=== PATIENT | female | born 1980 | race Caucasian/White ===

== ENCOUNTER 2018-03-14 10:14 | Emergency (ER) | payer BC ==
[~2018-03-14] VITALS: Ht 167.6 cm; Wt 100.0 kg
[~2018-03-14 10:14] MED LIST: ALBUS PO; AMOX875 PO; HYDR-3533 PO; LISI-360 PO; SYMB160A INH; [UNRECOGNIZED DRUG - CODE] MT
[2018-03-14 10:25] VITALS: BP 136/90; PULSE 86; RESP 16; TEMP 97.6; O2SAT 96
[2018-03-14] MEDS ORDERED: METH250T PO (10:41)
[2018-03-14] MEDS ORDERED: DIPH25CA PO (10:45)
--- NOTE | 2018-03-14 11:27 | PD ---
HPI Chief Complaint: Related Problem Time Seen by Provider: 11:01 Travel History International Travel<30 days: No Contact w/Intl Traveler<30days: No Traveled to known affect area: No History of Present Illness HPI 37-year-old female G2, P1, presents emergency department for evaluation of vaginal bleeding and pelvic pressure. Patient states she is approximately 10 weeks gestation. She has followed by Dr. Joy. IUP has been confirmed by ultrasound in their office. Patient tells me 3 days ago she started having light vaginal bleeding that has progressed to a heavy period bleeding as of today. She has pelvic pressure. She denies any specific pain. Denies any urinary symptoms. No fever or chills. She denies any trauma. She is in a monogamous relationship. She denies any other abnormal vaginal discharge. Patient tells me that she is Rh+. This is confirmed in our records. Patient has no other symptoms to report at this time. PFSH Past Medical History Asthma: Yes (with nsaids) Cancer: No Cardiovascular Problems: No Diabetes: No Endocrine: No Genitourinary: No Hepatitis: No Hiatal Hernia: No Hypertension: Yes Immune Disorder: No Musculoskeletal: No Neurologic: No Psychiatric: Yes (DEPRESSION ) Reproductive: No Respiratory: Yes (ASTHMA ) Thyroid Disease: No Influenza Vaccination: No ?: LMP: 01/02/18 Para: 1 Past Surgical History Other Surgery: Yes (nasal septoplasty) Social History Alcohol Use: No Tobacco Use: No Substance Use: No Allergies-Medications (Allergen,Severity, Reaction): Coded Allergies: Sulfa (Sulfonamide Antibiotics) (Unverified Allergy, Severe, Rash, 03/14/18 ) diclofenac (Unverified Allergy, Severe, SOB HISTAMINE REACTION, 03/14/18) etodolac (Unverified Allergy, Severe, SOB HISTAMINE REACTION, 03/14/18) flurbiprofen (Unverified Allergy, Severe, SOB HISTAMINE REACTION, 03/14/18 ) ibuprofen (Unverified Allergy, Severe, SOB HISTAMINE REACTION, 03/14/18) indomethacin (Unverified Allergy, Severe, SOB HISTAMINE REACTION, 03/14/18 ) ketoprofen (Unverified Allergy, Severe, SOB HISTAMINE REACTION, 03/14/18) ketorolac (Unverified Allergy, Severe, SOB HISTAMINE REACTION, 03/14/18) naproxen (Unverified Allergy, Severe, SOB HISTAMINE REACTION, 03/14/18) oxaprozin (Unverified Allergy, Severe, SOB HISTAMINE REACTION, 03/14/18) Reported Meds & Prescriptions Reported Meds & Active Scripts Active Reported Diphenhydramine (Diphenhydramine HCl) 25 Mg Cap 25 Mg PO Q12H Methyldopa 250 Mg Tab Unknown Dose PO BID Review of Systems Except as stated in HPI: all other systems reviewed are Neg Physical Exam Narrative GENERAL: Well-nourished female patient, no acute distress SKIN: Focused skin assessment warm/dry. HEAD: Atraumatic. Normocephalic. EYES: Pupils equal and round. No scleral icterus. No injection or drainage. ENT: No nasal bleeding or discharge. Mucous membranes pink and moist. NECK: Trachea midline. No JVD. CARDIOVASCULAR: Regular rate and rhythm. No murmur appreciated. RESPIRATORY: No accessory muscle use. Clear to auscultation. Breath sounds equal bilaterally. GASTROINTESTINAL: Abdomen soft, nondistended. Mild suprapubic tenderness to deep palpation. No guarding. No rebound tenderness. Hepatic and splenic margins not palpable. GENITOURINARY: Normal external genitalia without lesions or erythema. Vaginal vault with moderate amount of brown red blood. Cervical os was open a fingertip. No cervical motion tenderness. Uterus nontender and nonenlarged. Bilateral adnexa nontender without masses. MUSCULOSKELETAL: No obvious deformities. No clubbing. No cyanosis. No edema. NEUROLOGICAL: Awake and alert. No obvious cranial nerve deficits. Motor grossly within normal limits. Normal speech. PSYCHIATRIC: Appropriate mood and affect; insight and judgment normal. Data Data Last Documented VS Vital Signs Date Time Temp Pulse Resp B/P (MAP) Pulse Ox O2 Delivery O2 Flow Rate FiO2 03/14/18 10:25 97.6 86 16 136/90 (105) 96 Orders Orders Beta Hcg (Quant/Titer) (03/14/18 11:09) Complete Blood Count With Diff (03/14/18 11:09) Basic Metabolic Panel (Bmp) (03/14/18 11:09) Gc And Chlamydia Pcr (03/14/18 11:09) Type And Screen (03/14/18 11:09) Wet Prep Profile (03/14/18 11:09) Urinalysis - C+S If Indicated (03/14/18 11:09) Iv Access Insert/Monitor (03/14/18 11:09) Ecg Monitoring (03/14/18 11:09) Us Pelvis (Ques Pr/Ect)W Trans (03/14/18 ) Ed Discharge Order (03/14/18 14:02) Labs Laboratory Tests Test 03/14/18 11:15 03/14/18 11:20 03/14/18 11:40 White Blood Count 7.0 TH/MM3 Red Blood Count 4.27 MIL/MM3 Hemoglobin 13.5 GM/DL Hematocrit 39.5 % Mean Corpuscular Volume 92.6 FL Mean Corpuscular Hemoglobin 31.6 PG Mean Corpuscular Hemoglobin Concent 34.2 % Red Cell Distribution Width 13.0 % Platelet Count 237 TH/MM3 Mean Platelet Volume 9.4 FL Neutrophils (%) (Auto) 68.0 % Lymphocytes (%) (Auto) 21.4 % Monocytes (%) (Auto) 4.9 % Eosinophils (%) (Auto) 5.2 % Basophils (%) (Auto) 0.5 % Neutrophils # (Auto) 4.7 TH/MM3 Lymphocytes # (Auto) 1.5 TH/MM3 Monocytes # (Auto) 0.3 TH/MM3 Eosinophils # (Auto) 0.4 TH/MM3 Basophils # (Auto) 0.0 TH/MM3 CBC Comment DIFF FINAL Differential Comment Blood Urea Nitrogen 7 MG/DL Creatinine 0.70 MG/DL Random Glucose 86 MG/DL Calcium Level 8.4 MG/DL Sodium Level 139 MEQ/L Potassium Level 4.3 MEQ/L Chloride Level 106 MEQ/L Carbon Dioxide Level 24.2 MEQ/L Anion Gap 9 MEQ/L Estimat Glomerular Filtration Rate 94 ML/MIN Human Chorionic Gonadotropin, Quant 5512 MIU/ML Urine Color YELLOW Urine Turbidity CLEAR Urine pH 7.0 Urine Specific Cameron 1.022 Urine Protein TRACE mg/dL Urine Glucose (UA) NEG mg/dL Urine Ketones NEG mg/dL Urine Occult Blood MOD Urine Nitrite NEG Urine Bilirubin NEG Urine Urobilinogen 2.0 MG/DL Urine Leukocyte Esterase SMALL Urine RBC 1 /hpf Urine WBC 1 /hpf Urine Squamous Epithelial Cells 2 /hpf Urine Mucus FEW /lpf Microscopic Urinalysis Comment CULT NOT INDICATED Clue Cells (Wet Prep) NONE SEEN Vaginal Trichomonas (Wet Prep) NONE SEEN Vaginal Yeast (Wet Prep) NONE SEEN MDM Medical Decision Making Medical Screen Exam Complete: Yes Emergency Medical Condition: Yes Medical Record Reviewed: Yes Differential Diagnosis Vaginal bleeding during versus menses versus threatened versus postcoital bleeding versus STD Narrative Course 37-year-old female presents emergency department for evaluation of vaginal bleeding 3 days with previously confirmed IUP by Dr. Joy. Pelvic reveals moderate amount of red brown blood within the vaginal vault. Cervix is dilated to 1 cm. No CMT. Laboratory Tests Test 03/14/18 11:15 03/14/18 11:20 03/14/18 11:40 White Blood Count 7.0 TH/MM3 Red Blood Count 4.27 MIL/MM3 Hemoglobin 13.5 GM/DL Hematocrit 39.5 % Mean Corpuscular Volume 92.6 FL Mean Corpuscular Hemoglobin 31.6 PG Mean Corpuscular Hemoglobin Concent 34.2 % Red Cell Distribution Width 13.0 % Platelet Count 237 TH/MM3 Mean Platelet Volume 9.4 FL Neutrophils (%) (Auto) 68.0 % Lymphocytes (%) (Auto) 21.4 % Monocytes (%) (Auto) 4.9 % Eosinophils (%) (Auto) 5.2 % Basophils (%) (Auto) 0.5 % Neutrophils # (Auto) 4.7 TH/MM3 Lymphocytes # (Auto) 1.5 TH/MM3 Monocytes # (Auto) 0.3 TH/MM3 Eosinophils # (Auto) 0.4 TH/MM3 Basophils # (Auto) 0.0 TH/MM3 CBC Comment DIFF FINAL Differential Comment Blood Urea Nitrogen 7 MG/DL Creatinine 0.70 MG/DL Random Glucose 86 MG/DL Calcium Level 8.4 MG/DL Sodium Level 139 MEQ/L Potassium Level 4.3 MEQ/L Chloride Level 106 MEQ/L Carbon Dioxide Level 24.2 MEQ/L Anion Gap 9 MEQ/L Estimat Glomerular Filtration Rate 94 ML/MIN Human Chorionic Gonadotropin, Quant 5512 MIU/ML Urine Color YELLOW Urine Turbidity CLEAR Urine pH 7.0 Urine Specific Cameron 1.022 Urine Protein TRACE mg/dL Urine Glucose (UA) NEG mg/dL Urine Ketones NEG mg/dL Urine Occult Blood MOD Urine Nitrite NEG Urine Bilirubin NEG Urine Urobilinogen 2.0 MG/DL Urine Leukocyte Esterase SMALL Urine RBC 1 /hpf Urine WBC 1 /hpf Urine Squamous Epithelial Cells 2 /hpf Urine Mucus FEW /lpf Microscopic Urinalysis Comment CULT NOT INDICATED Clue Cells (Wet Prep) NONE SEEN Vaginal Trichomonas (Wet Prep) NONE SEEN Vaginal Yeast (Wet Prep) NONE SEEN Last Impressions Pelvis Ultrasound 03/14/18 0000 Signed Impressions: CONCLUSION: 1. Irregular gestational sac consistent with nonviable . 2. Echogenic focus distal sac could be a pole but no heart tones i dentified. I discussed the patient with my attending physician who is also reviewed the findings. Patient will be discharged home to follow-up with Dr. Joy. She is encouraged to return immediately with acute worsening of symptoms. 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
[2018-03-14 11:44] LABS: AUTOMATED NEUTROPHIL # 4.7 TH/MM3 (1.8-7.7); BASOPHIL % 0.5 % (0.0-2.0); EOSINOPHIL # 0.4 TH/MM3 (0-0.4); EOSINOPHIL % 5.2 % (0.0-4.0); HEMATOCRIT 39.5 % (35.0-46.0); HEMOGLOBIN 13.5 GM/DL (11.6-15.3); LYMPH % 21.4 % (9.0-44.0); LYMPHOCYTE # 1.5 TH/MM3 (1.0-4.8); MEAN CELL VOLUME 92.6 FL (80.0-100.0); MEAN CORPUSCULAR HEMOGLOBIN 31.6 PG (27.0-34.0); MEAN CORPUSCULAR HGB CONC 34.2 % (32.0-36.0); MEAN PLATELET VOLUME 9.4 FL (7.0-11.0); MONO % 4.9 % (0.0-8.0); MONOCYTE # 0.3 TH/MM3 (0-0.9); PLATELET COUNT 237 TH/MM3 (150-450); RED BLOOD COUNT 4.27 MIL/MM3 (4.00-5.30)
[2018-03-14 11:50] LABS: BILIRUBIN, URINE NEG (NEG); BLOOD, URINE MOD (NEG); GLUCOSE,URINE NEG (NEG); KETONE, URINE NEG (NEG); MUCUS URINE FEW /lpf (OCC); NITRITE,URINE NEG (NEG); SQUAMOUS EPITHELIAL CELL URINE 2 /hpf (0-5); URINE COLOR YELLOW (YELLW/STRAW); URINE LEUKOCYTE ESTERASE SMALL (NEG)
[2018-03-14 12:23] LABS: BICARBONATE 24.2 MEQ/L (21.0-32.0); CALCIUM 8.4 MG/DL (8.5-10.1); CREATININE 0.7 MG/DL (0.50-1.00)
--- NOTE | 2018-03-14 13:59 | RADRPT ---
EXAM DATE: 03/14/2018 1:37 PM EDT AGE/SEX: 37 years / Female INDICATIONS: Vaginal bleeding with . CLINICAL DATA: This is the patient's initial encounter. Patient reports that signs and symptoms have been present for 4 - 6 days and indicates a pain score of 5/10. MEDICAL/SURGICAL HISTORY: . . . Nasal septoplasty. COMPARISON: No prior [facility] exams available for comparison. MEASUREMENTS: Uterus:__11.3 x 7.3 x 5.9 cm, Endometrial Stripe:__9 mm Right Ovary:__ 2.3 x 1.6 x 1.2 cm Left Ovary:__ 3.4 x 2.0 x 3.1 FINDINGS: Uterus: Irregular elongated gestational sac with yolk sac. Echogenic focus in the distal sac could b e pole. This measures 13 x 7 x 5 mm No heart tones. Right Ovary: No mass or concerning cystic lesion Left Ovary: No mass or concerning cystic lesion Other: No free fluid. CONCLUSION: 1. Irregular gestational sac consistent with nonviable . 2. Echogenic focus distal sac could be a pole but no heart tones identified. Electronically signed by: Rui Argueta MD 03/14/2018 1:58 PM EDT
[2018-03-14] MEDS ORDERED: TRAM50 PO (14:06)
== END 2018-03-14 14:20 | disposition home or self-care (01) ==
LOC: NEPE 10:14
DX: O03.4 Incomplete spontaneous abortion without complication (principal); O99.341 Other mental disorders complicating pregnancy, first trimester; F32.9 Major depressive disorder, single episode, unspecified; O99.511 Diseases of the respiratory system complicating pregnancy, first trimester; J45.909 Unspecified asthma, uncomplicated; O16.1 Unspecified maternal hypertension, first trimester; Z3A.10 10 weeks gestation of pregnancy
CPT/HCPCS: 76700; 76817; 80048; 81001; 84702; 85025; 86850; 86900; 86901; 87210; 87491; 87591

== ENCOUNTER 2018-03-16 17:40 | Day surgery (SDC) | payer BC ==
[~2018-03-16] VITALS: Ht 167.6 cm; Wt 86.4 kg
[~2018-03-16 17:40] MED LIST changes: -ALBUS PO; -AMOX875 PO; +DEXAMETHASONE SOD PHOS 4 MG/ML VIAL IV ONE; +DIPH25CA PO; -HYDR-3533 PO; +LIDOCAINE HCL 1% PF 5 ML SYRINGE OTHER ONE; -LISI-360 PO; +METH250T PO; +ONDANSETRON HCL 4 MG/2 ML VIAL IV ONE; +PROPOFOL 200 MG/20 ML AMP IV ONE; +SODIUM CHLORIDE 0.9% 10 ML VIAL IV ONE; +SUCCINYLCHOLINE CHLORIDE 100 MG/5 ML SYRINGE IV PUSH ONE; -SYMB160A INH; +TRAM50 PO; -[UNRECOGNIZED DRUG - CODE] MT
[2018-03-16 17:44] VITALS: BP 138/90; PULSE 113; RESP 20; O2SAT 98
[2018-03-16] MEDS ORDERED: SODIUM CHLORIDE 0.9% FLUSH 10 ML FLUSH IV FLUSH PRN (17:45)
[2018-03-16] MEDS ORDERED: BUTORPHANOL TARTRATE INJ 1 MG/ML VIAL IV PUSH ONE (17:45)
[2018-03-16] MEDS: ONDANSETRON ODT 4 MG TAB PO ONE ×2 (18:00→21:04)
[2018-03-16 18:05] VITALS: BP 128/89; PULSE 93; RESP 18; O2SAT 99
[2018-03-16] MEDS ORDERED: ULTR37.55 PO (18:06)
[2018-03-16] MEDS ORDERED: ZOFR4TAB3 SL (18:06)
--- NOTE | 2018-03-16 18:06 | PD ---
HPI Chief Complaint: Related Problem Time Seen by Provider: 17:43 Travel History International Travel<30 days: No Contact w/Intl Traveler<30days: No Traveled to known affect area: No History of Present Illness HPI Patient was seen on March 14 and diagnosed with a threatened miscarriage based on ultrasound and quantitative hCG. The patient started to have much heavier bleeding onset today approximately 2 hours ago, she became concerned because it did not seem to be slowing down or stopping. Patient is aware that she was having an inevitable miscarriage, based on the ultrasound appears to have stopped growing at about 7 weeks or so and there was no evidence of any activity when the ultrasound was performed on 14 March. Patient states that her blood type is A+ Patient states that she develops nausea and vomiting to NSAIDs as well as to codeine Past medical history significant for hypertension, asthma, depression PFSH Past Medical History Asthma: Yes (with nsaids) Cancer: No Cardiovascular Problems: No Diabetes: No Endocrine: No Genitourinary: No Hepatitis: No Hiatal Hernia: No Hypertension: Yes Immune Disorder: No Musculoskeletal: No Neurologic: No Psychiatric: Yes (DEPRESSION ) Reproductive: No Respiratory: Yes (ASTHMA ) Thyroid Disease: No ?: Para: 1 Past Surgical History Other Surgery: Yes (nasal septoplasty) Social History Alcohol Use: No Tobacco Use: No Substance Use: No Allergies-Medications (Allergen,Severity, Reaction): Coded Allergies: NSAIDS (Non-Steroidal Anti-Inflamma (Verified Allergy, Severe, Anaphylaxis , 03/16/18) Sulfa (Sulfonamide Antibiotics) (Verified Allergy, Severe, Rash, 03/16/18) diclofenac (Verified Allergy, Severe, SOB HISTAMINE REACTION, 03/16/18) etodolac (Verified Allergy, Severe, SOB HISTAMINE REACTION, 03/16/18) flurbiprofen (Verified Allergy, Severe, SOB HISTAMINE REACTION, 03/16/18) ibuprofen (Verified Allergy, Severe, SOB HISTAMINE REACTION, 03/16/18) indomethacin (Verified Allergy, Severe, SOB HISTAMINE REACTION, 03/16/18) ketoprofen (Verified Allergy, Severe, SOB HISTAMINE REACTION, 03/16/18) ketorolac (Verified Allergy, Severe, SOB HISTAMINE REACTION, 03/16/18) naproxen (Verified Allergy, Severe, SOB HISTAMINE REACTION, 03/16/18) oxaprozin (Verified Allergy, Severe, SOB HISTAMINE REACTION, 03/16/18) Reported Meds & Prescriptions Reported Meds & Active Scripts Active Reported Methyldopa 250 Mg Tab 250 Mg PO TID Review of Systems Except as stated in HPI: all other systems reviewed are Neg Physical Exam Narrative GENERAL: SKIN: Warm and dry. HEAD: Atraumatic. Normocephalic. EYES: Pupils equal and round. No scleral icterus. No injection or drainage. ENT: No nasal bleeding or discharge. Mucous membranes pink and moist. NECK: Trachea midline. No JVD. CARDIOVASCULAR: Regular rate and rhythm. RESPIRATORY: No accessory muscle use. Clear to auscultation. Breath sounds equal bilaterally. GASTROINTESTINAL: Abdomen soft, non-tender, nondistended. MUSCULOSKELETAL: Extremities without clubbing, cyanosis, or edema. No obvious deformities. NEUROLOGICAL: Awake and alert. No obvious cranial nerve deficits. Motor grossly within normal limits. Five out of 5 muscle strength in the arms and legs. Normal speech. PSYCHIATRIC: Appropriate mood and affect; insight and judgment normal. Data Data Last Documented VS Vital Signs Date Time Temp Pulse Resp B/P (MAP) Pulse Ox O2 Delivery O2 Flow Rate FiO2 03/16/18 18:36 93 16 133/85 (101) 98 Room Air Orders Orders Complete Blood Count With Diff (03/16/18 17:45) Basic Metabolic Panel (Bmp) (03/16/18 17:45) Beta Hcg (Quant/Titer) (03/16/18 17:45) Iv Access Insert/Monitor (03/16/18 17:45) Ecg Monitoring (03/16/18 17:45) Oximetry (03/16/18 17:45) NPO (03/16/18 17:45) Sodium Chloride 0.9% Flush (Ns Flush) (03/16/18 17:45) Butorphanol Inj (Stadol Inj) (03/16/18 17:45) Ondansetron Odt (Zofran Odt) (03/16/18 18:00) Labs Laboratory Tests Test 03/16/18 18:00 White Blood Count 8.6 TH/MM3 Red Blood Count 3.81 MIL/MM3 Hemoglobin 12.4 GM/DL Hematocrit 34.8 % Mean Corpuscular Volume 91.4 FL Mean Corpuscular Hemoglobin 32.6 PG Mean Corpuscular Hemoglobin Concent 35.7 % Red Cell Distribution Width 12.9 % Platelet Count 232 TH/MM3 Mean Platelet Volume 9.1 FL Neutrophils (%) (Auto) 72.4 % Lymphocytes (%) (Auto) 18.4 % Monocytes (%) (Auto) 5.3 % Eosinophils (%) (Auto) 3.4 % Basophils (%) (Auto) 0.5 % Neutrophils # (Auto) 6.2 TH/MM3 Lymphocytes # (Auto) 1.6 TH/MM3 Monocytes # (Auto) 0.5 TH/MM3 Eosinophils # (Auto) 0.3 TH/MM3 Basophils # (Auto) 0.0 TH/MM3 CBC Comment DIFF FINAL Differential Comment Blood Urea Nitrogen 10 MG/DL Creatinine 0.83 MG/DL Random Glucose 99 MG/DL Calcium Level 8.8 MG/DL Sodium Level 141 MEQ/L Potassium Level 3.7 MEQ/L Chloride Level 108 MEQ/L Carbon Dioxide Level 23.1 MEQ/L Anion Gap 10 MEQ/L Estimat Glomerular Filtration Rate 77 ML/MIN MDM Medical Decision Making Medical Screen Exam Complete: Yes Emergency Medical Condition: Yes Medical Record Reviewed: Yes Differential Diagnosis Anemia versus dehydration versus miscarriage inevitable Narrative Course Patient seen and evaluated on March 14, 2018 at which time GC and Chlamydia were negative, clue cells/trichomonas/yeast negative. Electrolytes were all within normal limits with a quantitative hCG of 5512 CBC shows no leukocytosis, H&H of 13/39, normal normal platelet count and no left shift Ultrasound performed on March 14 also showed an irregular elongated gestational sac with yolk sac but no evidence of any heart tones On March 16 patient's leukocytes are negative, normal platelet count, no left shift, normal H&H of 12/35 Electrolytes are all within normal limits, normal kidney function Repeat quantitative hCG is lower than prior ONE consistent with miscarriage Diagnosis Primary Impression: Miscarriage Patient Instructions: General Instructions, Miscarriage (ED) Disposition: 01 DISCHARGE HOME Condition: Stable Scout Garcia MD March 16, 2018 18:06
[2018-03-16 18:26] LABS: AUTOMATED NEUTROPHIL # 6.2 TH/MM3 (1.8-7.7); BASOPHIL % 0.5 % (0.0-2.0); EOSINOPHIL # 0.3 TH/MM3 (0-0.4); EOSINOPHIL % 3.4 % (0.0-4.0); HEMATOCRIT 34.8 % (35.0-46.0); HEMOGLOBIN 12.4 GM/DL (11.6-15.3); LYMPH % 18.4 % (9.0-44.0); LYMPHOCYTE # 1.6 TH/MM3 (1.0-4.8); MEAN CELL VOLUME 91.4 FL (80.0-100.0); MEAN CORPUSCULAR HEMOGLOBIN 32.6 PG (27.0-34.0); MEAN CORPUSCULAR HGB CONC 35.7 % (32.0-36.0); MEAN PLATELET VOLUME 9.1 FL (7.0-11.0); MONO % 5.3 % (0.0-8.0); MONOCYTE # 0.5 TH/MM3 (0-0.9); NEUT % 72.4 % (16.0-70.0); PLATELET COUNT 232 TH/MM3 (150-450); RED BLOOD COUNT 3.81 MIL/MM3 (4.00-5.30); RED CELL DISTRIBUTION WIDTH 12.9 % (11.6-17.2); WHITE BLOOD COUNT 8.6 TH/MM3 (4.0-11.0)
[2018-03-16 18:36] VITALS: BP 133/85; PULSE 93; RESP 16; O2SAT 98
[2018-03-16] MEDS ORDERED: METH250T PO (18:42)
[2018-03-16 18:53] LABS: BICARBONATE 23.1 MEQ/L (21.0-32.0); CALCIUM 8.8 MG/DL (8.5-10.1); CREATININE 0.83 MG/DL (0.50-1.00)
[2018-03-16 19:30] VITALS: BP 105/56; PULSE 86; RESP 16; O2SAT 98
[2018-03-16] MEDS ORDERED: MISOPROSTOL 200 MCG TAB PO ONE (19:45)
[2018-03-16] MEDS ORDERED: MISOPROSTOL 200 MCG TAB RECTAL ONE (19:45)
--- NOTE | 2018-03-16 19:49 | PD ---
Data Data Last Documented VS Vital Signs Date Time Temp Pulse Resp B/P (MAP) Pulse Ox O2 Delivery O2 Flow Rate FiO2 03/16/18 18:36 93 16 133/85 (101) 98 Room Air Orders Orders Complete Blood Count With Diff (03/16/18 17:45) Basic Metabolic Panel (Bmp) (03/16/18 17:45) Beta Hcg (Quant/Titer) (03/16/18 17:45) Iv Access Insert/Monitor (03/16/18 17:45) Ecg Monitoring (03/16/18 17:45) Oximetry (03/16/18 17:45) NPO (03/16/18 17:45) Sodium Chloride 0.9% Flush (Ns Flush) (03/16/18 17:45) Butorphanol Inj (Stadol Inj) (03/16/18 17:45) Ondansetron Odt (Zofran Odt) (03/16/18 18:00) Us Pelvis (Ques Pr/Ect)W Trans (03/16/18 ) Misoprostol (Cytotec) (03/16/18 19:45) Misoprostol (Cytotec) (03/16/18 19:45) Cbc No Diff, Includes Plts (03/16/18 22:28) Labs Laboratory Tests Test 03/16/18 18:00 White Blood Count 8.6 TH/MM3 Red Blood Count 3.81 MIL/MM3 Hemoglobin 12.4 GM/DL Hematocrit 34.8 % Mean Corpuscular Volume 91.4 FL Mean Corpuscular Hemoglobin 32.6 PG Mean Corpuscular Hemoglobin Concent 35.7 % Red Cell Distribution Width 12.9 % Platelet Count 232 TH/MM3 Mean Platelet Volume 9.1 FL Neutrophils (%) (Auto) 72.4 % Lymphocytes (%) (Auto) 18.4 % Monocytes (%) (Auto) 5.3 % Eosinophils (%) (Auto) 3.4 % Basophils (%) (Auto) 0.5 % Neutrophils # (Auto) 6.2 TH/MM3 Lymphocytes # (Auto) 1.6 TH/MM3 Monocytes # (Auto) 0.5 TH/MM3 Eosinophils # (Auto) 0.3 TH/MM3 Basophils # (Auto) 0.0 TH/MM3 CBC Comment DIFF FINAL Differential Comment Blood Urea Nitrogen 10 MG/DL Creatinine 0.83 MG/DL Random Glucose 99 MG/DL Calcium Level 8.8 MG/DL Sodium Level 141 MEQ/L Potassium Level 3.7 MEQ/L Chloride Level 108 MEQ/L Carbon Dioxide Level 23.1 MEQ/L Anion Gap 10 MEQ/L Estimat Glomerular Filtration Rate 77 ML/MIN Human Chorionic Gonadotropin, Quant 2024 MIU/ML MDM Supervised Visit with [employer]: No Narrative Course The patient was initially evaluated by the previous provider and discharged just prior to change of shift. See his note for further details. As the patient was being discharged about 30 minutes after change of shift at around 7: 30 PM, she had a near syncopal episode and was noted to have significant vaginal bleeding. At this time I was called to the bedside by the patient's nurse. This is a 37-year-old female , approximately 10 weeks , seen in the emergency department 2 days ago and diagnosed with a nonviable , presents today for evaluation of significant vaginal bleeding started about 2 hours prior to arrival. Previous provider did basic blood work which showed an H&H of 12/34, and deemed the patient stable for discharge home. Upon discharge the patient had near syncopal episode and her blood pressure went down to 90s over 60s. A liter of fluids was hung. I evaluated the patient and at this time she is awake and alert, however feels lightheaded. According to the nurse she had 4 large episodes of bleeding during her entire emergency department stay. I discussed the case with on-call OB hospitalist Dr. Lopez who recommends 400 mg of rectal Cytotec and 400 mg of oral Cytotec as well as a pelvic ultrasound to assess for possible retained products of conception. Pelvic ultrasound: CONCLUSION: 1. Redemonstration of irregular appearing endometrial gestational sac without a definite pole or heart tones. Given apparent interval decrease in beta hCG, findings are consistent with demise. 10:00 PM: Case again discussed with OB hospitalist Dr. Lopez who will present to the emergency department to evaluate the patient. The patient was evaluated by Dr. Lopez. Plan is for the patient to be taken to the OR for D&C by Dr. Jerry Diagnosis Primary Impression: Incomplete Patient Instructions: General Instructions, Miscarriage (ED) Disposition: 01 DISCHARGE HOME Condition: Stable Pardeep Choi MD March 16, 2018 19:49
--- NOTE | 2018-03-16 21:56 | RADRPT ---
EXAM DATE: 03/16/2018 9:49 PM EDT AGE/SEX: 37 years / Female INDICATIONS: Vaginal bleeding. CLINICAL DATA: This is the patient's subsequent encounter. Patient reports that signs and symptoms h ave been present for 4 - 6 days and indicates a pain score of 2/10. MEDICAL/SURGICAL HISTORY: . . Hypertension. Asthma. Depression. . Nasal septopla sty. COMPARISON: C, US PELVIS ([facility] PREG/ECTOPIC) W/TRANSVAG, 03/14/2018. . No external comparison . MEASUREMENTS: Uterus:__11.4 x 5.8 x 7.1 Endometrial Stripe:__17 mm Right Ovary:__ 3.5 x 2.0 x 2.1 Left Ovary:__ 3.0 x 2.0 x 2.1 FINDINGS: Uterus: Redemonstration of somewhat irregular appearing endometrial gestational sac containing a yol k sac but no definite pole or heart tones. Right Ovary: No mass or concerning cystic lesion. Left Ovary: No mass or concerning cystic lesion. Other: No free fluid. CONCLUSION: 1. Redemonstration of irregular appearing endometrial gestational sac without a definite pole or heart tones. Given apparent interval decrease in beta hCG, findings are consistent with feta l demise. Electronically signed by: Mikal Saeed MD 03/16/2018 9:54 PM EDT
[2018-03-16 22:00] VITALS: BP 125/76; PULSE 89; RESP 16; O2SAT 98
--- NOTE | 2018-03-16 22:37 | HHI.HP ---
HPI Chief Complaint vaginal bleeding Date Seen: March 16, 2018 Time Seen: 22:30 Travel History International Travel<30 Days: No Contact w/Intl Traveler<30Days: No Known Affected Area: No History of Present Illness HPI 37 yo at approx 8 weeks c/o heavy vaginal bleeding that began this aftenoon. Passed multiple blood clots at home, soaking two hand towels. Bled through 3 chucks in the ED. Sees Dr Joy for care this with initial visit 3 weeks ago. Was diagnosed with missed Ab on . She called the office and elected for observation for a short time to allow spontaneous miscarriage. Experienced a vasovagal episode in ED and given fluids. Sonogram noted missed ab. Patient has been given cytotec 800mcg approx 2 hours ago. Weeks Gestation: 8 Para: 1 : 2 History Past Medical History Narrative Medical Hypertension on [place] Obstetric History Obstetric History x 1 Past Surgical History Narrative Surgical Nasal bone reconstruction Family History Family History: Negative Social History Alcohol Use: No Tobacco Use: No Substance Abuse: No Allergies-Medications (Allergen,Severity, Reaction): Coded Allergies: NSAIDS (Non-Steroidal Anti-Inflamma (Verified Allergy, Severe, Anaphylaxis , 03/16/18) Sulfa (Sulfonamide Antibiotics) (Verified Allergy, Severe, Rash, 03/16/18) diclofenac (Verified Allergy, Severe, SOB HISTAMINE REACTION, 03/16/18) etodolac (Verified Allergy, Severe, SOB HISTAMINE REACTION, 03/16/18) flurbiprofen (Verified Allergy, Severe, SOB HISTAMINE REACTION, 03/16/18) ibuprofen (Verified Allergy, Severe, SOB HISTAMINE REACTION, 03/16/18) indomethacin (Verified Allergy, Severe, SOB HISTAMINE REACTION, 03/16/18) ketoprofen (Verified Allergy, Severe, SOB HISTAMINE REACTION, 03/16/18) ketorolac (Verified Allergy, Severe, SOB HISTAMINE REACTION, 03/16/18) naproxen (Verified Allergy, Severe, SOB HISTAMINE REACTION, 03/16/18) oxaprozin (Verified Allergy, Severe, SOB HISTAMINE REACTION, 03/16/18) Home Meds Reported Medications Methyldopa (Methyldopa) 250 Mg Tab, 250 MG PO TID for Blood Pressure Management , TAB 0 Refills 03/16/18 Discontinued Reported Medications Diphenhydramine (Diphenhydramine) 25 Mg Cap, 25 MG PO Q12H, CAP 0 Refills 03/14/18 Methyldopa (Methyldopa) 250 Mg Tab, PO BID for Blood Pressure Management, TAB 0 Refills 03/14/18 Discontinued Scripts Tramadol-Acetaminophen (Ultracet) 37.5-325 mg Tab, 2 TAB PO Q6H Y for PAIN for 2 Days, #16 TAB 0 Refills Prov:Scout Garcia MD 03/16/18 Ondansetron Odt (Zofran Odt) 4 Mg Tab, 4 MG SL Q6HR Y for Nausea/Vomiting, #14 TAB 0 Refills Prov:Scout Garcia MD 03/16/18 Tramadol (Ultram) 50 Mg Tab, 50 MG PO Q8H Y for PAIN, #12 TAB 0 Refills Prov:Roro Zaidi 03/14/18 Review of Systems Except as stated in HPI: all other systems reviewed are Neg Physical Exam Vital Signs Date Time Temp Pulse Resp B/P (MAP) Pulse Ox O2 Delivery O2 Flow Rate FiO2 03/16/18 18:36 93 16 133/85 (101) 98 Room Air 03/16/18 18:05 93 18 128/89 (102) 99 Room Air 03/16/18 17:44 113 20 138/90 (106) 98 Narrative GENERAL: Well-nourished, well-developed patient. SKIN: Warm and dry. HEAD: Normocephalic and atraumatic. EYES: No scleral icterus. No injection or drainage. ENT: No nasal drainage noted. Mucous membranes pink. Airway patent. NECK: Supple, trachea midline. No JVD. CARDIOVASCULAR: Regular rate and rhythm without murmurs, gallops, or rubs. ABDOMEN/GI: Abdomen soft, non-tender, bowel sounds present, no rebound, no guarding GENITOURINARY: Speculum exam noted large clots in vagina. Cervix is open with active mild/mod bleeding. No product of conception are noted. EXTREMITIES: No cyanosis or edema. BACK: Nontender without obvious deformity. No CVA tenderness. NEUROLOGICAL: Awake and alert. Motor and sensory grossly within normal limits. Five out of 5 muscle strength in all muscle groups. Normal speech. Caprini VTE Risk Assessment Caprini VTE Risk Assessment: No/Low Risk (score <= 1) Caprini Risk Assessment Model Point Value = 1 Point Value = 2 Point Value = 3 Point Value = 5 Age 41-60 Minor surgery BMI > 25 kg/m2 Swollen legs Varicose veins or History of unexplained or recurrent spontaneous Oral contraceptives or hormone replacement Sepsis (< 1 month) Serious lung disease, including pneumonia (< 1 month) Abnormal pulmonary function Acute myocardial infarction Congestive heart failure (< 1 month) History of inflammatory bowel disease Medical patient at bed rest Age 61-74 Arthroscopic surgery Major open surgery (> 45 min) Laparoscopic surgery (> 45 min) Malignancy Confined to bed (> 72 hours) Immobilizing plaster cast Central venous access Age >= 75 History of VTE Family history of VTE Factor V Leiden Prothrombin [id number] Lupus anticoagulant Anticardiolipin antibodies Elevated serum homocysteine Heparin-induced thrombocytopenia Other congenital or acquired thrombophilia Stroke (< 1 month) Elective arthroplasty Hip, pelvis, or leg fracture Acute spinal cord injury (< 1 month) Prophylaxis Regimen Total Risk Factor Score Risk Level Prophylaxis Regimen 0-1 Low Early ambulation 2 Moderate Order ONE of the following: *Sequential Compression Device (SCD) *Heparin 5000 units SQ BID 3-4 Higher Order ONE of the following medications: *Heparin 5000 units SQ TID *Enoxaparin/Lovenox 40 mg SQ daily (WT < 150 kg, CrCl > 30 mL/min) *Enoxaparin/Lovenox 30 mg SQ daily (WT < 150 kg, CrCl > 10-29 mL/min) *Enoxaparin/Lovenox 30 mg SQ BID (WT < 150 kg, CrCl > 30 mL/min) AND/OR *Sequential Compression Device (SCD) 5 or more Highest Order ONE of the following medications: *Heparin 5000 units SQ TID (Preferred with Epidurals) *Enoxaparin/Lovenox 40 mg SQ daily (WT < 150 kg, CrCl > 30 mL/min) *Enoxaparin/Lovenox 30 mg SQ daily (WT < 150 kg, CrCl > 10-29 mL/min) *Enoxaparin/Lovenox 30 mg SQ BID (WT < 150 kg, CrCl > 30 mL/min) AND *Sequential Compression Device (SCD) Data Data Vital Signs Reviewed: Yes Orders Orders Complete Blood Count With Diff (03/16/18 17:45) Basic Metabolic Panel (Bmp) (03/16/18 17:45) Beta Hcg (Quant/Titer) (03/16/18 17:45) Iv Access Insert/Monitor (03/16/18 17:45) Ecg Monitoring (03/16/18 17:45) Oximetry (03/16/18 17:45) NPO (03/16/18 17:45) Sodium Chloride 0.9% Flush (Ns Flush) (03/16/18 17:45) Butorphanol Inj (Stadol Inj) (03/16/18 17:45) Ondansetron Odt (Zofran Odt) (03/16/18 18:00) Us Pelvis (Ques Pr/Ect)W Trans (03/16/18 ) Misoprostol (Cytotec) (03/16/18 19:45) Misoprostol (Cytotec) (03/16/18 19:45) Cbc No Diff, Includes Plts (03/16/18 22:28) Labs Last 24 hours Impressions Pelvis Ultrasound 03/16/18 0000 Signed Impressions: CONCLUSION: 1. Redemonstration of irregular appearing endometrial gestational sac without a definite pole or heart tones. Given apparent interval decrease in beta hCG, findings are consistent with demise. Laboratory Tests Test 03/16/18 18:00 White Blood Count 8.6 Red Blood Count 3.81 Hemoglobin 12.4 Hematocrit 34.8 Mean Corpuscular Volume 91.4 Mean Corpuscular Hemoglobin 32.6 Mean Corpuscular Hemoglobin Concent 35.7 Red Cell Distribution Width 12.9 Platelet Count 232 Mean Platelet Volume 9.1 Neutrophils (%) (Auto) 72.4 Lymphocytes (%) (Auto) 18.4 Monocytes (%) (Auto) 5.3 Eosinophils (%) (Auto) 3.4 Basophils (%) (Auto) 0.5 Neutrophils # (Auto) 6.2 Lymphocytes # (Auto) 1.6 Monocytes # (Auto) 0.5 Eosinophils # (Auto) 0.3 Basophils # (Auto) 0.0 CBC Comment DIFF FINAL Differential Comment Blood Urea Nitrogen 10 Creatinine 0.83 Random Glucose 99 Calcium Level 8.8 Sodium Level 141 Potassium Level 3.7 Chloride Level 108 Carbon Dioxide Level 23.1 Anion Gap 10 Estimat Glomerular Filtration Rate 77 Human Chorionic Gonadotropin, Quant 2023 Assessment/Plan Problem List: (1) Incomplete ICD Codes: O03.4 - Incomplete spontaneous without complication Status: Acute Assessment and Plan Discussed patient with Dr Jerry who is covering Dr Joy. He is coming to evaluate and perform D&C with suction. I discussed the procedure in detail including risks of the procedure bleeding, injury to the bowel, bladder, perforation of uterus, and blood transfusion. H&H has been drawn Patient has been NPO since 2pm today. Rosa Lopez MD March 16, 2018 22:37
[2018-03-16] MEDS ORDERED: OXYTOCIN 10 UNIT/ML AMP ONE (22:40)
[2018-03-16] MEDS ORDERED: ACETAMINOPHEN 1000 MG/100 ML 100 ML IV ONE (22:45)
[2018-03-16 22:55] LABS: HEMATOCRIT 30.3 % (35.0-46.0); HEMOGLOBIN 10.3 GM/DL (11.6-15.3); MEAN CELL VOLUME 91.2 FL (80.0-100.0); MEAN CORPUSCULAR HEMOGLOBIN 30.9 PG (27.0-34.0); MEAN CORPUSCULAR HGB CONC 33.9 % (32.0-36.0); MEAN PLATELET VOLUME 9.1 FL (7.0-11.0); PLATELET COUNT 252 TH/MM3 (150-450); RED BLOOD COUNT 3.32 MIL/MM3 (4.00-5.30); RED CELL DISTRIBUTION WIDTH 13.1 % (11.6-17.2); WHITE BLOOD COUNT 12.3 TH/MM3 (4.0-11.0)
--- NOTE | 2018-03-16 23:29 | PD.OP ---
Operative Report Date of Surgery: March 16, 2018 Preoperative Diagnosis: (1) Incomplete Postoperative Diagnosis: (1) Incomplete Procedure: D&C with suction Anesthesia: general munguia Surgeon: Derick Jerry Payment Processor(s): Derick Narvaez MD March 16, 2018 23:29
[2018-03-16] MEDS ORDERED: PERC5TAB12 PO (23:33)
[2018-03-16] MEDS ORDERED: DO NOT ADM ANY ANTICOAGULANT DRUGS PRN (23:33)
--- NOTE | 2018-03-16 23:34 | HHI.DCPOC ---
Discharge Care Plan Diagnosis: (1) Incomplete Report Symptoms to Your Doctor -Temperature above 100.5 degrees -Redness, of incision or excessive or foul smelling drainage -Unusual pain or calf pain -Increased vaginal bleeding -Painful or difficulty urinating -Feelings of extreme sadness or anxiety after 2 weeks Goals to Promote Your Health * To prevent worsening of your condition and complications * To maintain your health at the optimal level Directions to Meet Your Goals Take your medications as prescribed Follow your dietary instruction Follow activity as directed Ensure plenty of rest for recovery Drink fluids for hydration Keep your appointments as scheduled Take your immunizations and boosters as scheduled If your symptoms worsen call your PCP, if no PCP go to Urgent Care Center or Emergency Room Smoking is Dangerous to Your Health. Avoid second hand smoke Call the 24-hour crisis hotline for domestic abuse at Derick Jerry MD March 16, 2018 23:34
[2018-03-16] MEDS ORDERED: RESP: ALBUTEROL CONC 2.5 MG/0.5 ML NEB ONE (23:36)
[2018-03-16] MEDS ORDERED: MIDAZOLAM HCL 2 MG/2 ML VIAL ONE (23:51)
--- NOTE | 2018-03-16 23:56 | MP ---
cc: Derick Jerry MD DATE OF OPERATION: 03/16/2018 PROCEDURE PERFORMED: Dilatation and curettage with suction curette. PREOPERATIVE DIAGNOSIS: The patient has an incomplete . POSTOPERATIVE DIAGNOSIS: The patient has an incomplete , dilatation and curettage with suction curette. SURGEON: Derick Jerry MD ANESTHESIA: General, Dr. Colvin. COMPLICATIONS: None. FINDINGS: Products of conception within the uterus. COMPLICATIONS: None. ESTIMATED BLOOD LOSS: Less than 50 mL. PROCEDURE IN DETAIL: After informed consent, the patient was taken to the operating room, where she was placed under general anesthesia, was placed in a supine position, legs in the candy cane stirrups, abdomen, perineum and vagina were prepped and draped in normal sterile fashion. Speculum was placed in vagina. The cervix was grasped with a single-tooth tenaculum and suctioned and the os was opened. The 8 mm suction curette was passed to the fundus. All products of conception were evacuated without difficulty. After all products of conception were evacuated, a sharp curette was passed in all 4 quadrants. There were no remaining products of conception. Suction curette was passed one last time. Pressure was held on the tenaculum site to slowly stopped bleeding and the procedure was ended. The patient was taken to the recovery room and will go home tonight at her request. MD THELMA Mendoza/AGATHA , 11:30 PM , 11:54 PM
[2018-03-17] MEDS ORDERED: ZOFR4TAB PO (00:15)
[2018-03-17] MEDS ORDERED: ULTR37.55 PO (00:16)
[2018-03-17 00:45] VITALS: BP 122/65; PULSE 91; RESP 20; TEMP 98.2; O2SAT 98
== END 2018-03-17 00:48 | disposition home or self-care (01) ==
LOC: NEPE 17:40 → NEDA 22:43 → HSDC 22:43 → HSDI 23:13 → HSDC 03-17 00:48
PROVIDERS: ATTEND Obstetrics & Gynecology
DX: O03.4 Incomplete spontaneous abortion without complication (principal); I10 Essential (primary) hypertension; R55 Syncope and collapse; J45.909 Unspecified asthma, uncomplicated; F32.9 Major depressive disorder, single episode, unspecified; Z79.899 Other long term (current) drug therapy
CPT/HCPCS: 01965; 59812; 76700; 76817; 80048; 84702; 85025; 85027; 88305; 99284; J0131; J0330; J1100; J2250; J2405; J3010; J7611; J2590